=== PATIENT | male | born 1980 | race Caucasian/White ===

== ENCOUNTER 2017-04-01 17:10 | Emergency (ER) | payer OTHER ==
[~2017-04-01] VITALS: Ht 182.9 cm; Wt 80.8 kg
[~2017-04-01 17:10] MED LIST: ACYCLOVIR200 MG; ANAPROX DS550 M1 PO; CLEOCIN300 MG PO; DEPAKOTE ER250 MG PO; DEPAKOTE ER500 MG PO; DEPAKOTE500 MG PO; DILANTIN BRAND100 MG PO; DIVALPROEX SOD500 M1 PO; Depakote PO; FIORICET,ESG1 TABLET PO; FYCOMPA4 MG PO; GLUCAGEN1 MG IM/SC; GLUCOPHAGE1000 MG PO; GLUCOPHAGE500 MG PO; HYDROCODON-ACE1 EAC7; HYDROCODON-ACE1 EAC7 PO; INDOMETHACIN75 MG PO; KEFLEX500 MG PO; KEPPRA; KEPPRA1000 MG PO; Keppra PO; LANTUS 10100 UNITS/; LANTUS 10100 UNITS/ SC; LEVEMIR FL100 UNIT/1 SC; LEVEMIR100 UNIT/2 SC; LIDOCAINE700 MG TD; LIDODERM 5% P1 PATCH TD; METFORMIN HCL500 M1; METFORMIN HCL500 M1 PO; METFORMIN HCL500 MG PO; NAPROSYN500 MG PO; NORCO 5/3251 TABLET PO; NOVOLOG 10100 UNITS/; NOVOLOG PE100 UNITS/ SC; ONDANSETRON ODT4 MG PO; OXYCODONE HCL10 MG PO; OXYCODONE HCL30 MG PO; OXYCONTIN20 MG PO; OXYCONTIN30 MG PO; PRILOSEC40 MG PO; Percocet 5/325,Endoc PO; ROXICODONE5 MG PO; Remove Lidoderm Patc TD; SAVELLA50 MG PO; TOPAMAX25 MG PO; TOPIRAMATE50 MG PO; TRAMADOL HCL50 MG PO; VALIUM5 MG PO; VIMPAT50 MG PO; ZANAFLEX4 M1 PO; ZOFRAN ODT4 MG PO; ZOFRAN4 MG PO
[2017-04-01] MEDS ORDERED: NORCO 5/3251 TABLET PO (17:54)
[2017-04-01] MEDS ORDERED: PREDNISONE50 MG PO (17:54)
[2017-04-01 18:20] VITALS: BP 123/86
== END 2017-04-01 18:21 | disposition home or self-care (01) ==
LOC: EME 17:10
DX: M54.5 Low back pain (principal); M54.2 Cervicalgia; X50.9XXA Other and unspecified overexertion or strenuous movements or postures, initial encounter; Y93.I1 Activity, roller coaster riding
CPT/HCPCS: 99281; 99283

== ENCOUNTER 2017-05-05 17:58 | Emergency (ER) | payer OTHER ==
[~2017-05-05] VITALS: Ht 182.9 cm; Wt 80.0 kg
[~2017-05-05 17:58] MED LIST changes: +PREDNISONE50 MG PO
[2017-05-05 18:48] LABS: HEMATOCRIT 41.6 % (38.0-50.0); MCHC 34.1 G/DL (30.0-36.0); MCV 87.9 FL (86-99); MEAN PLAT.VOLUME 10.3 uM^3 (9.0-12.4); PLATELET COUNT 407 K/uL (156-360); RBC DIS.WIDTH-CV 12.1 % (11.8-14.6); RBC DIS.WIDTH-SD 39.4 % (39-53); RED BLOOD COUNT 4.73 M/uL (4.00-5.50); WHITE BLOOD COUNT 9.8 K/uL (4.1-10.2)
[2017-05-05 18:53] LABS: ADD MIUA? NO; BILIRUBIN NEGATIVE; BLOOD NEGATIVE; COLOR COLORLESS ((YELLOW)); GLUCOSE (STRIP) >=500; KETONES 5; LEUKOCYTES NEGATIVE; NITRITE NEGATIVE; PROTEIN (STRIP) NEGATIVE; SPECIFIC GRAVITY 1.023 (1.000-1.030); UCUL ADDED? NO; UROBILINOGEN 0.2 MG/DL (0.2-1.0)
[2017-05-05 18:57] LABS: CHLORIDE 89 mEq/L (99-109); POTASSIUM 4.3 mEq/L (3.7-5.4); SODIUM 123 mEq/L (136-147)
[2017-05-05 19:00] LABS: ANION GAP 12 MEQ/L (2-14)
[2017-05-05 19:01] LABS: TOTAL BILIRUBIN 0.3 mg/dL (0.0-1.0)
[2017-05-05 19:03] LABS: ALKALINE PHOSPHATASE 78 IU/L (3-129); GFR ESTIMATE (CALCULATED) > 59 mL/min/
[2017-05-05 19:04] LABS: UREA NITROGEN (BUN) 17 mg/dL (9-23)
[2017-05-05 19:13] LABS: CARBON DIOXIDE (BICARBONATE) 28.6 MEQ/L (20-31)
[2017-05-05 19:15] LABS: GLUCOSE 776 mg/dL (70-99)
[2017-05-05 20:41] LABS: POINT-OF-CARE METER ID UU13113702
[2017-05-05 21:29] VITALS: BP 112/75
== END 2017-05-05 21:30 | disposition home or self-care (01) ==
LOC: EME 17:58
PROVIDERS: Emergency Medicine
DX: E11.65 Type 2 diabetes mellitus with hyperglycemia (principal); T38.3X6A Underdosing of insulin and oral hypoglycemic [antidiabetic] drugs, initial encounter; Z91.128 Patient's intentional underdosing of medication regimen for other reason; Z79.4 Long term (current) use of insulin
CPT/HCPCS: 71020; 80053; 81003; 82010; 82803; 82948; 83605; 85027; 99281; 99285; J1885; J2405; J7030

== ENCOUNTER 2017-09-03 05:54 | Emergency (ER) | payer OTHER ==
[~2017-09-03] VITALS: Ht 182.9 cm; Wt 91.8 kg
[2017-09-03 06:32] LABS: HEMATOCRIT 42.7 % (38.0-50.0); MCH 30.3 PG (29.0-34.0); MCHC 35.1 G/DL (30.0-36.0); MCV 86.3 FL (86-99); MEAN PLAT.VOLUME 9.7 uM^3 (9.0-12.4); PLATELET COUNT 399 K/uL (156-360); RBC DIS.WIDTH-CV 12.4 % (11.8-14.6); RBC DIS.WIDTH-SD 38.9 % (39-53); RED BLOOD COUNT 4.95 M/uL (4.00-5.50); WHITE BLOOD COUNT 9.6 K/uL (4.1-10.2)
[2017-09-03 06:35] LABS: ADD MIUA? NO; BILIRUBIN NEGATIVE; BLOOD NEGATIVE; COLOR STRAW ((YELLOW)); GLUCOSE (STRIP) >=500; KETONES 20; LEUKOCYTES NEGATIVE; NITRITE NEGATIVE; PROTEIN (STRIP) NEGATIVE; SPECIFIC GRAVITY 1.029 (1.000-1.030); UCUL ADDED? NO; UROBILINOGEN 0.2 MG/DL (0.2-1.0)
[2017-09-03 06:44] LABS: CHLORIDE 98 mEq/L (99-109); POTASSIUM 4.3 mEq/L (3.7-5.4); SODIUM 134 mEq/L (136-147)
[2017-09-03 06:45] LABS: AMPHETAMINE NEGATIVE (500 ng/mL); BARBITURATES NEGATIVE (200 ng/mL); BENZODIAZEPINES NEGATIVE (150 ng/mL); COCAINE NEGATIVE (150 ng/mL); INTERNAL CONTROLS VALID? YES; METHADONE NEGATIVE (200 ng/mL); METHAMPHETAMINE NEGATIVE (500 ng/mL); OPIATES (MORPHINE) PRESUMPTIVE POSITIVE (100 ng/mL); OXYCODONE NEGATIVE (100 ng/mL); PHENCYCLIDINE NEGATIVE (25 ng/mL); PROPOXYPHENE NEGATIVE (300 ng/mL); THC CANNABINOIDS PRESUMPTIVE POSITIVE (50 ng/mL); TRICYCLIC ANTIDEPRESSANTS NEGATIVE (300 ng/mL)
[2017-09-03 06:46] LABS: GLUCOSE 555 mg/dL (70-99)
[2017-09-03 06:46] LABS: ADD MEDTOX COMMENT Y
[2017-09-03 06:47] LABS: ANION GAP 13 MEQ/L (2-14)
[2017-09-03 06:49] LABS: SERUM ETHYL ALCOHOL < 10 mg/dL
[2017-09-03 06:50] LABS: GFR ESTIMATE (CALCULATED) > 59 mL/min/
[2017-09-03 06:51] LABS: UREA NITROGEN (BUN) 20 mg/dL (9-23)
[2017-09-03 07:26] LABS: SAMPLE HEMOLYSIS CHECK 2; SAMPLE ICTERIC CHECK 0; SAMPLE LIPEMIA CHECK 1
[2017-09-03 08:50] LABS: POINT-OF-CARE METER ID UU13113747
[2017-09-03] MEDS ORDERED: FYCOMPA4 MG PO (09:48)
[2017-09-03] MEDS ORDERED: MOTRIN600 MG PO (09:48)
[2017-09-03] MEDS ORDERED: TYLENOL EXTRA500 MG PO (09:48)
[2017-09-03 10:15] LABS: POINT-OF-CARE METER ID UU13113747
[2017-09-03 10:35] VITALS: BP 121/86
[2017-09-03 20:46] LABS: POINT-OF-CARE METER ID UU13113747
== END 2017-09-03 10:36 | disposition home or self-care (01) ==
LOC: TRA 05:54
PROVIDERS: Emergency Medicine
DX: G40.909 Epilepsy, unspecified, not intractable, without status epilepticus (principal); S16.1XXA Strain of muscle, fascia and tendon at neck level, initial encounter; R51 Headache; V49.40XA Driver injured in collision with unspecified motor vehicles in traffic accident, initial encounter; E11.9 Type 2 diabetes mellitus without complications; G43.909 Migraine, unspecified, not intractable, without status migrainosus
CPT/HCPCS: 70450; 72100; 72125; 80048; 80164; 81003; 82010; 82948; 84999; 85027; 99281; 99285; G0480; J1885; J2270; J7120

== ENCOUNTER 2018-01-09 11:18 | Emergency (ER) | payer OTHER ==
[~2018-01-09] VITALS: Ht 182.9 cm; Wt 79.5 kg
[~2018-01-09 11:18] MED LIST changes: +MOTRIN600 MG PO; +TYLENOL EXTRA500 MG PO
[2018-01-09 11:56] LABS: HEMATOCRIT 45.5 % (38.0-50.0); HEMOGLOBIN 16.4 G/DL (12.5-16.6); MCH 30.7 PG (29.0-34.0); MCV 85.2 FL (86-99); PLATELET COUNT 397 K/uL (156-360); RBC DIS.WIDTH-CV 11.9 % (11.8-14.6); RBC DIS.WIDTH-SD 37.1 % (39-53); RED BLOOD COUNT 5.34 M/uL (4.00-5.50); WHITE BLOOD COUNT 10.1 K/uL (4.1-10.2)
[2018-01-09 12:07] LABS: CHLORIDE 95 mEq/L (99-109); POTASSIUM 3.7 mEq/L (3.7-5.4); SODIUM 132 mEq/L (136-147)
[2018-01-09 12:11] LABS: GLUCOSE 433 mg/dL (70-99)
[2018-01-09 12:13] LABS: GFR ESTIMATE (CALCULATED) > 59 mL/min/ (58.99-99999)
[2018-01-09 12:14] LABS: UREA NITROGEN (BUN) 12 mg/dL (9-23)
[2018-01-09 12:48] LABS: CARBON DIOXIDE (BICARBONATE) 29.9 MEQ/L (20-31)
[2018-01-09 13:15] LABS: CARBAMAZEPINE (TEGRETOL) < 2.0 MCG/ML (4.0-12.0); PHENOBARBITAL < 5.0 MCG/ML (15-40)
[2018-01-09 13:21] LABS: APPEARANCE CLEAR ((CLEAR)); BILIRUBIN NEGATIVE; BLOOD NEGATIVE; COLOR YELLOW ((YELLOW)); GLUCOSE (STRIP) >=500; KETONES 20; LEUKOCYTES NEGATIVE; NITRITE NEGATIVE; PROTEIN (STRIP) NEGATIVE; SPECIFIC GRAVITY 1.035 (1.000-1.030); UCUL ADDED? NO; UROBILINOGEN 0.2 MG/DL (0.2-1.0)
[2018-01-09 13:36] LABS: VALPROIC ACID (DEPAKOTE) 28.4 MCG/ML (50-100)
[2018-01-09 15:45] VITALS: BP 107/72
== END 2018-01-09 16:00 | disposition home or self-care (01) ==
LOC: EME 11:18
PROVIDERS: Emergency Medicine
DX: G40.909 Epilepsy, unspecified, not intractable, without status epilepticus (principal); E11.65 Type 2 diabetes mellitus with hyperglycemia; R51 Headache; M54.2 Cervicalgia; M54.9 Dorsalgia, unspecified; W06.XXXA Fall from bed, initial encounter
CPT/HCPCS: 70450; 71045; 72125; 80048; 80156; 80164; 80184; 80185; 81003; 82010; 82803; 82948; 85027; 99281; 99285; J1885; J7030